=== PATIENT | female | born 1965 | race Caucasian/White ===

== ENCOUNTER → 2017-02-09 | Outpatient (CLI) | payer OTHER ==
[~2017-02-09] MED LIST: LISI-167; OXYC-302; PANT40TA3; PROM25VI5; PROP60TA; SIMV40TA3
== END | disposition home or self-care (01) ==
LOC: EDSTATUS 02-02 08:30 → CFH 07:47
PROVIDERS: ATTEND Physician Assistant
DX: N64.89 Other specified disorders of breast (principal); L98.8 Other specified disorders of the skin and subcutaneous tissue
CPT/HCPCS: 71250

== ENCOUNTER → 2017-08-31 | Outpatient (CLI) | payer OTHER | END | disposition home or self-care (01) | LOC: CFH 10:39 | DX: Z12.31 Encounter for screening mammogram for malignant neoplasm of breast (principal) | CPT/HCPCS: 77067 ==